=== PATIENT | male | born 1975 | race Caucasian/White ===

== ENCOUNTER 2019-12-10 15:00 | Outpatient (RCR) | payer BC, SELFPAY ==
[2019-10-01 14:55] VITALS: BMI 41.3
[2019-12-10 14:57] VITALS: BMI 41.3
[2019-12-10 15:03] VITALS: BMI 41.3
== END 2019-12-30 23:59 | disposition home or self-care (01) ==
LOC: ANHDMC 15:00
PROVIDERS: PCP Internal Medicine; Visit Provider Internal Medicine
DX: E66.9 Obesity, unspecified (principal); Z71.3 Dietary counseling and surveillance
CPT/HCPCS: 97802; 97803

== ENCOUNTER 2020-06-10 11:56 | Outpatient (CLI) | payer SELFPAY ==
[2020-06-11 01:03] LABS: SARS-CoV-2 RNA PCR Positive
== END 2020-06-10 11:57 | disposition home or self-care (01) ==
LOC: CHSLAB 11:58
PROVIDERS: PCP Internal Medicine; Visit Provider Internal Medicine
DX: U07.1 COVID-19 (principal)
CPT/HCPCS: 87635; C9803; U0003

== ENCOUNTER 2020-06-20 07:24 | Outpatient (CLI) | payer SELFPAY ==
[2020-06-20 08:32] LABS: SARS-CoV-2 Ag Negative (Negative)
== END 2020-06-20 07:25 | disposition home or self-care (01) ==
LOC: CHSLAB 07:26
PROVIDERS: PCP Internal Medicine; Visit Provider Internal Medicine
DX: Z20.828 Contact with and (suspected) exposure to other viral communicable diseases (principal)
CPT/HCPCS: 87426

== ENCOUNTER → 2020-12-13 03:01 | Outpatient (CLI) | payer BC, SELFPAY ==
[2020-12-13 20:06] LABS: SARS-CoV-2 RNA PCR Negative
== END ==
PROVIDERS: PCP Internal Medicine; Visit Provider Internal Medicine Gastroenterology
DX: Z01.812 Encounter for preprocedural laboratory examination (principal); Z20.822 Contact with and (suspected) exposure to COVID-19
CPT/HCPCS: C9803; U0003; U0005

== ENCOUNTER 2020-12-16 01:56 | Day surgery (SDC) | payer BC, SELFPAY ==
[2020-12-07 12:26] VITALS: BMI 39.7
[2020-12-16 09:31] VITALS: BP 127/73; PULSE 56; RESP 18; TEMP 35.9; O2SAT 96; BMI 40.4
[2020-12-16] MEDS: LACTATED RINGERS 1,000 ML 150 ML IV CONT (09:39)
--- NOTE | 2020-12-16 10:21 | WPDANESEPPF ---
Anes - Initial Pre Proc Eval Procedure: Operation Date: 12/16/20 11:00 Proposed Procedures p Colonoscopy - Kwasi Alvarado MD Date/Time: 12/16/20 10:21 Surgeon: Kwasi Alvarado MD Pre Op Diagnosis: change in bowel habits Patient Data Age: 45 Gender: M Height: 6 ft Weight: 135.4 kg Last Vital Signs Temp 96.6 F L 12/16/20 09:31 Pulse 56 L 12/16/20 09:31 Resp 18 12/16/20 09:31 BP 127/73 12/16/20 09:31 Pulse Ox 96 12/16/20 09:31 Allergies Allergy/AdvReac Type Severity Reaction Status Date / Time No Known Allergies Allergy Verified 12/16/20 09:30 Home Medications Medication Instructions Recorded Confirmed Type montelukast 10 mg tablet 10 mg PO DAILY 06/11/19 12/16/20 History sertraline 50 mg tablet 50 mg PO DAILY 06/11/19 12/16/20 History diclofenac sodium 75 mg PO BID 07/17/19 12/16/20 History naltrexone 50 mg PO DAILY 07/17/19 12/16/20 History trazodone 100 mg PO HS 07/17/19 12/16/20 History Patient hx anesthesia problems: none Family hx anesthesia problems: none PMFSH Past Medical History Medical History Asthma Back pain Seasonal allergies Surgical History Surgical History H/O vasectomy Social History Social History Smokeless tobacco user: chewing tobacco Second hand tobacco smoke exposure: No Alcohol intake: former Substance use: former Substance use type: opiates Other substance usage details: ask pt on arrival unable to give info at this time Last use: 2018 Living arrangements: with family Gender identity (if verbalized by the patient): Male Spiritual care concerns: No Anes - Eval Final PreProcedure Day of Procedure 12/16/20 10:21 Patient weight: morbidly obese Heart: regular rate and rhythm Lungs: clear to auscultation Airway: Mallampati scale class II Neurological: alert and oriented Last oral intake: >/= 8 hours ASA classification: III Emergent: no Anesthetic plan: proceed Anesthesia type and monitoring: general GIVS and standard monitoring Informed Consent: The patient's anesthetic plan and its attendant risks and benefits were discussed with the patient/family/POA. Questions were solicited and answers provided to the satisfaction of the patient/family/POA.
--- NOTE | 2020-12-16 10:35 | PM.HPGS ---
History of Present Illness History of Present Illness Consent: Risks, benefits, and alternatives have been discussed and questions answered. Patient agrees to proceed with procedure. Chief complaint: change in bowel habits Narrative: Dusty Lopez is a 45 year old male with change in bowel habits, more constipated lately. Never had colonoscopy Review of Systems Constitutional: Constitutional: Denies headache(s) and Denies weakness Eyes: Eyes: Denies blurry vision ENT: Reports Normal hearing present, Denies headache(s) and Denies neck pain Cardiovascular: Cardiovascular: Denies chest pain and Denies dyspnea Respiratory: Respiratory: Denies dyspnea Gastrointestinal: Gastrointestinal: Reports no additional gastrointestinal complaints Genitourinary: Genitourinary: Denies dysuria Musculoskeletal: Musculoskeletal: Denies neck pain Integumentary/Breasts: Skin/Breast: Denies dry skin Neurologic: Reports Normal hearing present, Denies headache(s) and Denies weakness Psychiatric: Psychiatric: Denies anxiety Endocrine: Endocrine: Denies change in body appearance Hematologic/Lymphatic: Hematologic/Lymphatic: Denies easy bleeding Allergic/Immunologic: Allergic/Immunologic: Denies urticaria PMF Past Medical History Medical History (Updated 12/16/20 @ 10:35 by Kwasi Alvarado MD) Asthma Back pain Constipation Seasonal allergies Surgical History Surgical History H/O vasectomy Social History Social History Smokeless tobacco user: chewing tobacco Second hand tobacco smoke exposure: No Alcohol intake: former Substance use: former Substance use type: opiates Other substance usage details: ask pt on arrival unable to give info at this time Last use: 2018 Living arrangements: with family Gender identity (if verbalized by the patient): Male Spiritual care concerns: No Meds Home Medications and Allergies Home Medications Medication Instructions Recorded Confirmed Type montelukast 10 mg tablet 10 mg PO DAILY 06/11/19 12/16/20 History sertraline 50 mg tablet 50 mg PO DAILY 06/11/19 12/16/20 History diclofenac sodium 75 mg PO BID 07/17/19 12/16/20 History naltrexone 50 mg PO DAILY 07/17/19 12/16/20 History trazodone 100 mg PO HS 07/17/19 12/16/20 History Allergies Allergy/AdvReac Type Severity Reaction Status Date / Time No Known Allergies Allergy Verified 12/16/20 09:30 Vital Signs Vital Signs - 24 hr 12/16/20 09:31 Temperature 96.6 F L Pulse Rate 56 L Respiratory Rate 18 Blood Pressure 127/73 Pulse Oximetry 96 Exam Const: General: comfortable and no acute distress HENMT: General nose exam: Normal nares present Eyes: General: appearance normal, both eyes and all related structures Neck: Neck: no JVD Resp: Auscultation: clear to auscultation bilaterally Cardio: Rate: regular rate Rhythm: regular rhythm GI: Inspection: non-distended GI Palp: Yes Soft to palpation Skin: General skin exam: normal color Neuro: General: gait normal Speech: normal speech Extrem: General: normal to inspection Psych: Mental Status: mental status grossly normal Assessment and Plan Assessment and plan (1) Constipation: Code(s): K59.00 - Constipation, unspecified Status: Acute Assessment and Plan: colonoscopy
[2020-12-16 10:50] VITALS: BP 103/63; PULSE 44; RESP 18; O2SAT 96
[2020-12-16 11:00] VITALS: BP 111/61; PULSE 50; RESP 18; O2SAT 96
[2020-12-16 11:10] VITALS: BP 108/64; PULSE 52; RESP 18; O2SAT 96
== END 2020-12-16 11:35 | disposition home or self-care (01) ==
PROVIDERS: PCP Internal Medicine; Visit Provider Internal Medicine Gastroenterology
PROC: 0DJD8ZZ Inspection of Lower Intestinal Tract, Via Natural or Artificial Opening Endoscopic (ICD-10-PCS; CPT 45378; principal; 2020-12-16 11:00)
DX: K59.00 Constipation, unspecified (principal); K64.8 Other hemorrhoids; J45.909 Unspecified asthma, uncomplicated; F17.220 Nicotine dependence, chewing tobacco, uncomplicated; E66.01 Morbid (severe) obesity due to excess calories; Z68.41 Body mass index [BMI] 40.0-44.9, adult
CPT/HCPCS: 45378; C9803; J2001; J2704; J7120; U0003; U0005

== ENCOUNTER 2021-02-27 09:53 | Outpatient (CLI) | payer BC, SELFPAY ==
[2021-02-27 10:56] LABS: SARS-CoV-2 RNA PCR Negative (Negative)
== END 2021-02-27 09:54 | disposition home or self-care (01) ==
LOC: CHSLAB 09:56
PROVIDERS: PCP Internal Medicine; Visit Provider Internal Medicine
DX: Z20.822 Contact with and (suspected) exposure to COVID-19 (principal)
CPT/HCPCS: C9803; U0003; U0005

== ENCOUNTER 2022-10-23 14:56 | Outpatient (CLI) | payer BC, SELFPAY ==
--- NOTE | ~2022-10-23 | XR_ITS ---
XR knee LT 3V 10/23/2022 15:20 Indication: Left knee pain Procedure: 3 views left knee Comparison: No prior studies for comparison. Findings: No fracture, subluxation or dislocation. No significant joint effusion. There is anatomic a lignment. No focal soft tissue abnormality. No foreign bodies. Impression: 1: No significant bone or joint abnormality. Reviewed, dictated and finalized at location A. Impression: 1: No significant bone or joint abnormality.
== END 2022-10-23 14:57 | disposition home or self-care (01) ==
LOC: CHSIMG 14:59
PROVIDERS: PCP Internal Medicine; Visit Provider Internal Medicine
DX: M25.562 Pain in left knee (principal)
CPT/HCPCS: 73562

== ENCOUNTER 2023-04-08 16:02 | Outpatient (CLI) | payer BC, SELFPAY ==
--- NOTE | ~2023-04-08 | XR_ITS ---
Left Shoulder Technique: AP and scapular Y views were obtained. Clinical History: Pain Findings: No fracture or dislocation is seen. Osseous alignment is anatomic. The glenohumeral and acr omioclavicular joint spaces are preserved. Soft tissues are unremarkable. Impression: Unremarkable left shoulder radiographs. Reviewed, dictated and finalized at [facility]. Impression: Unremarkable left shoulder radiographs.
== END 2023-04-08 16:03 | disposition home or self-care (01) ==
LOC: CHSIMG 16:04
PROVIDERS: PCP Internal Medicine; Visit Provider Nurse Practitioner Family
DX: M25.512 Pain in left shoulder (principal)
CPT/HCPCS: 73030

== ENCOUNTER 2023-12-13 06:39 | Outpatient (CLI) | payer BC, SELFPAY ==
--- NOTE | ~2023-12-13 | MR_ITS ---
MRI of the left shoulder Technique: Axial proton-density fat-sat images, coronal proton density fat-sat and T2 fat-sat images, and sagittal T1-weighted and T2 fat-sat images were acquired. Clinical History: Pain Findings: There is [id number] AC joint degenerative change. No significant subacromial spur. Co racoclavicular, coracoacromial, and coracohumeral ligaments are intact. Supraspinatus and infraspinatus tendons are intact, without partial or full-thickness tear. Subscapul abiel tendon is intact. Tendon of the long head of the biceps is intact. No labral tear identified. Inferior glenohumeral ligament is intact. No degenerative change or effusion of the glenohumeral join t. No fluid distention of the subacromial/subdeltoid bursa. No muscle atrophy or edema. Impression: Mild to moderate AC joint degenerative change. No rotator cuff or labral tear seen. No other significant findings. Reviewed, dictated and finalized at [facility]. Impression: Mild to moderate AC joint degenerative change. No rotator cuff or labral tear seen. No other significant findings.
== END 2023-12-13 06:40 | disposition home or self-care (01) ==
PROVIDERS: PCP Internal Medicine; Visit Provider Internal Medicine
DX: M25.512 Pain in left shoulder (principal)
CPT/HCPCS: 73221

== ENCOUNTER 2024-12-24 17:57 | Outpatient (CLI) | payer BC, SELFPAY ==
--- NOTE | ~2024-12-24 | XR_ITS ---
Thoracic spine: Clinical Indication: Back pain, scoliosis AP and lateral views were performed. No fracture evident. There is dextroscoliosis, with Woo angle of 69 degrees. There is mild multileve l degenerative disc narrowing the thoracic spine. Paravertebral soft tissues appear normal. Impression: Prominent dextroscoliosis, as detailed above. Reviewed, dictated and finalized at location . Impression: Prominent dextroscoliosis, as detailed above.
--- NOTE | ~2024-12-24 | XR_ITS ---
Lumbosacral Spine: AP and lateral views Clinical History: Pain Findings: The normal lordotic curve is maintained. The vertebral bodies and posterior elements are i ntact. The intervertebral disc spaces are preserved. There is moderate facet arthropathy throughout the lumbar spine. The sacroiliac joints are normally outlined. Impression: Moderate facet arthropathy throughout the lumbar spine. Reviewed, dictated and finalized at location . Impression: Moderate facet arthropathy throughout the lumbar spine.
--- OUTSIDE RECORDS SUMMARY | 2024-12-24 18:02 | XMS_ITS | Continuity of Care Document ---
Author Organization [facility] Address [address] [place] [address] Phone Care Team Providers Care Sausage Stuffer Name Role Phone Donald Talavera MD Unavailable Unavailable Advance Directives Directive Yes / No Effective Date File Name No Information Encounters Encounter Description Practice Location Reason(s) For Visit Diagnoses Date Provider Providers Copied on Encounter [facility], [address], [place], [place], [id number], tel:[phone] [facility] No Information Ilan Bennett. [address] [place] [address], [address], [place], [place], [id number], . tel:[phone] Referring Provider: Donald Talavera, [address] [place] [address], [place], [address]. tel:[phone] Family History Family Member Type Diagnosis Age At Onset No Information Payers Payer name Insurance type Covered libertarian ID Authoriza tion(s) [employer] ACCESS CHOICE BL [id number] Social History Type Description Quantity Date Captured Comments Sex Male Smoking Status No Information Sexual Orientation Choose not to disclose Chief Complaint And Reason For Visit No Information Reason For Referral Reason For Referral No Information History Of Present Illness Encounter Date Complaint History Of Prese nt Illness No Information Functional Status Date Functional Assessmen t No Information Instructions Date Instruction Additional Infor mation No Information Assessments Type Assessment Date No Information Patient Care Teams Name Effective Dates (start - stop) Status Members No Information
== END 2024-12-24 17:58 | disposition home or self-care (01) ==
PROVIDERS: PCP Internal Medicine; Visit Provider Internal Medicine
DX: M54.50 Low back pain, unspecified (principal); M12.88 Other specific arthropathies, not elsewhere classified, other specified site; M41.84 Other forms of scoliosis, thoracic region
CPT/HCPCS: 72072; 72100